=== PATIENT | female | born 1970 | race Two or more races ===

== ENCOUNTER → 2017-04-01 | Outpatient (CLI) | payer OTHER | END | disposition home or self-care (01) | LOC: CFH 09:33 | PROVIDERS: ATTEND Obstetrics & Gynecology | DX: Z12.31 Encounter for screening mammogram for malignant neoplasm of breast (principal) | CPT/HCPCS: G0202 ==

== ENCOUNTER → 2018-04-06 | Outpatient (CLI) | payer OTHER | END | disposition home or self-care (01) | LOC: CFH 14:52 | PROVIDERS: ATTEND Obstetrics & Gynecology | DX: Z12.31 Encounter for screening mammogram for malignant neoplasm of breast (principal) | CPT/HCPCS: 77067 ==

== ENCOUNTER 2019-05-05 08:09 | Outpatient (CLI) | payer OTHER | END 2019-05-05 23:59 | disposition home or self-care (01) | LOC: CFH 08:09 | PROVIDERS: ATTEND Obstetrics & Gynecology | DX: Z12.31 Encounter for screening mammogram for malignant neoplasm of breast (principal) | CPT/HCPCS: 77067 ==

== ENCOUNTER 2019-06-26 16:36 | Emergency (ER) | payer OTHER ==
[~2019-06-26] VITALS: Ht 160 cm; Wt 61.7 kg
[2019-06-26 16:57] LABS: BASOPHILS # (AUTO) 0.16 x10^3/uL (0-0.1); BASOPHILS % (AUTO) 2 % (0-1); EOSINOPHILS # (AUTO) 0.41 x10^3/uL (0-0.4); EOSINOPHILS % (AUTO) 4 % (1-7); LYMPHOCYTES # (AUTO) 3.71 x10^3/uL (1-3.4); LYMPHOCYTES % (AUTO) 40 % (22-44); MD NO; MEAN CORPUSCULAR HEMOGLOBIN 31.4 pg (27.0-34.8); MONOCYTES # (AUTO) 0.35 x10^3/uL (0.2-0.8); MONOCYTES % (AUTO) 4 % (2-9); NEUTROPHILS # (AUTO) 4.62 x10^3/uL (1.8-6.8); NEUTROPHILS % (AUTO) 50 % (42-75); PLATELET COUNT 237 x10^3/uL (130-400); RED BLOOD COUNT 5.08 x10^6/uL (3.82-5.3); RED CELL DISTRIBUTION WIDTH 13.3 % (9.6-15.2)
[2019-06-26] MEDS ORDERED: PLEASE ENTER ALLERGIES MC SCH (17:00)
[2019-06-26] MEDS ORDERED: LORazepam 2 MG/ML, 1ML IVPush ONE (17:00)
[2019-06-26 17:18] LABS: ALBUMIN 4.2 g/dL (3.4-5.0); ANION GAP 12 mmol/L (5-15); CALCIUM 9.5 mg/dL (8.5-10.1); CHLORIDE 110 mmol/L (98-107)
--- NOTE | 2019-06-26 17:20 | NUR ---
[facility]IB [facility] 3 PT NO VERBAL ON ARRIVAL WITH PATENET AIRWAY PUPILS EQUAL AND RECATIVE UNABLE TO FOLLOW COMMANDS ERP TO THE BS ON ARRIVAL PLACED ON FULL MONITORING TWO IV IN PLACE PT REPORTED STRESS TO [facility] PT PT TAKEN TO CT ENROUTE TO CT BEGAN TO RESPONED TO LIMITED VERBAL COMMANDS ON RETURN FROM CT PT INCREASED RESPONSES TO VERBAL ON ARRIVAL BACK TO ED HAS COMPLETE RESONSES TO VERBAL DOES CO CP ERP AWARE
[2019-06-26 17:21] LABS: ALANINE AMINOTRANSFERASE 26 U/L (12-78); ALKALINE PHOSPHATASE 71 U/L (45-117); BILIRUBIN,TOTAL 0.4 mg/dL (0.2-1.0); CREATININE 0.83 mg/dL (0.55-1.02); TOTAL PROTEIN 8.3 g/dL (6.4-8.2)
[2019-06-26 17:22] LABS: SALICYLATE LEVEL < 1.7 mg/dL (2.8-20.0)
[2019-06-26] MEDS ORDERED: PLEASE ENTER HEIGHT AND WEIGHT MC SCH (17:30)
[2019-06-26] MEDS ORDERED: POTASSIUM CHLORIDE 20 MEQ TAB.ER.PRT ONE (17:54)
--- NOTE | 2019-06-26 17:57 | NUR ---
REPORT RECEIVED FROM TERESA BERG.
--- NOTE | 2019-06-26 17:59 | NUR ---
PT MEDICATED PER [facility]. PT TOLERATED WELL.
[2019-06-26] MEDS ORDERED: POTASSIUM CHLORIDE 20 MEQ TAB.ER.PRT PO ONE (18:00)
[2019-06-26] MEDS ORDERED: LORazepam 2 MG/ML, 1ML ONE (18:16)
--- NOTE | 2019-06-26 18:32 | NUR ---
UA CANCELED PER EDMD VERBAL ORDER.
[2019-06-26 18:35] VITALS: BP 132/75
--- NOTE | 2019-06-26 19:01 | NUR ---
REPORT FROM AMMY BERG
--- NOTE | 2019-06-26 19:01 | NUR ---
REPORT GIVEN TO ANDRIA BERG.
== END 2019-06-26 20:08 | disposition home or self-care (01) ==
LOC: ED 17:19
DX: F41.1 Generalized anxiety disorder (principal); R06.4 Hyperventilation
CPT/HCPCS: 36415; 70450; 80053; 80307; 83735; 84443; 84703; 85025; 93005; 96374; 99284; J2060

== ENCOUNTER 2019-06-27 18:22 | Emergency (ER) | payer OTHER ==
[~2019-06-27] VITALS: Ht 160 cm; Wt 54.5 kg
[2019-06-27] MEDS ORDERED: LORazepam 1MG TABLET ONE (18:53)
[2019-06-27] MEDS ORDERED: LORazepam 1MG TABLET PO ONE (19:00)
[2019-06-27 19:30] LABS: MEAN CORPUSCULAR HEMOGLOBIN 31.2 pg (27.0-34.8); MEAN CORPUSCULAR VOLUME 94.6 fL (80-100); MEAN PLATELET VOLUME 7.7 fL (7.4-10.4); PLATELET COUNT 291 x10^3/uL (130-400); RED BLOOD COUNT 4.89 x10^6/uL (3.82-5.3); RED CELL DISTRIBUTION WIDTH 13.2 % (9.6-15.2)
[2019-06-27 19:40] LABS: ANION GAP 7 mmol/L (5-15); CALCIUM 9.2 mg/dL (8.5-10.1); CHLORIDE 109 mmol/L (98-107); CREATININE 0.81 mg/dL (0.55-1.02)
[2019-06-27 19:44] LABS: FREE T4 (FREE THYROXINE) 1.01 ng/dL (0.76-1.46); TROPONIN I < 0.015 ng/mL (0.000-0.045)
[2019-06-27 20:25] LABS: BASOPHILS # (AUTO) 0.14 x10^3/uL (0-0.1); BASOPHILS % (AUTO) 1 % (0-1); EOSINOPHILS # (AUTO) 0.51 x10^3/uL (0-0.4); EOSINOPHILS % (AUTO) 5 % (1-7); LYMPHOCYTES # (AUTO) 3.18 x10^3/uL (1-3.4); LYMPHOCYTES % (AUTO) 33 % (22-44); MD SCAN; MONOCYTES # (AUTO) 0.42 x10^3/uL (0.2-0.8); MONOCYTES % (AUTO) 4 % (2-9); NEUTROPHILS # (AUTO) 5.45 x10^3/uL (1.8-6.8); NEUTROPHILS % (AUTO) 56 % (42-75)
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
[2019-06-27 21:48] VITALS: BP 122/72
== END 2019-06-27 21:51 | disposition home or self-care (01) ==
LOC: ED 19:26
DX: R55 Syncope and collapse (principal); F41.1 Generalized anxiety disorder; R20.2 Paresthesia of skin; R51 Headache
CPT/HCPCS: 36415; 70450; 71045; 80048; 82040; 84439; 84443; 84481; 84484; 85025; 93005; 99284

== ENCOUNTER → 2021-02-23 | Outpatient (CLI) | payer OTHER | END | disposition home or self-care (01) | LOC: CFH 09:48 | PROVIDERS: ATTEND Obstetrics & Gynecology | DX: Z12.31 Encounter for screening mammogram for malignant neoplasm of breast (principal) | CPT/HCPCS: 77063; 77067 ==